=== PATIENT | female | born 2000 | race Caucasian/White ===

== ENCOUNTER 2023-07-21 11:13 | Emergency (ER) | payer BC ==
[~2023-07-21] VITALS: Ht 157.5 cm; Wt 64.9 kg
[2023-07-21 11:18] VITALS: BP 132/105; PULSE 87; RESP 18; O2SAT 100
[2023-07-21 11:46] LABS: APPEARANCE,URINE CLEAR (CLEAR); BILIRUBIN,URINE NEGATIVE (NEGATIVE); BLOOD, URINE 1+ (NEGATIVE); COLOR,URINE YELLOW (YELLOW); LEUKOCYTE ESTERASE ,URINE NEGATIVE (NEGATIVE); NITRITE, URINE NEGATIVE (NEGATIVE); PROTEIN,URINE NEGATIVE (NEGATIVE); UGLUCOSE NEGATIVE (NEGATIVE); UROBILINOGEN,URINE 0.2 EU/dL (0.2 - 1)
[2023-07-21 11:55] LABS: BACTERIA,URINE FEW /HPF (None Seen); RBC,URINE 0-5 /HPF (0-5); SQUAMOUS EPITHELIAL CELL,UR 0-3 (FEW) /LPF (0-3 (FEW)); WBC,URINE 0-5 /HPF (0-5)
[2023-07-21] MEDS: KETOROLAC 30 MG/ML VIAL IVP ONE (12:07)
[2023-07-21 12:33] LABS: BASOPHILS # (AUTO) 0.1 K/uL (0.00-0.22); BASOPHILS % (AUTO) 0.8 % (0.0-2.0); EOSINOPHILS # (AUTO) 0.1 K/uL (0-0.4); EOSINOPHILS % (AUTO) 1.1 % (0.0-4.0); HEMATOCRIT 40.6 % (36-48); LYMPHOCYTES # (AUTO) 3.1 K/uL (2.5-16.5); MEAN CORPUSCULAR HEMOGLOBIN 32 pg (27-31); MEAN CORPUSCULAR HGB CONC 35 g/dL (33-37); MEAN CORPUSCULAR VOLUME 92.1 fL (80-94); MONOCYTES # (AUTO) 0.6 K/uL (0.8-1.0); MONOCYTES % (AUTO) 6.3 % (1.7-9.3); NEUTROPHILS # (AUTO) 5.8 K/uL (1.8-7.7); NEUTROPHILS % (AUTO) 59.8 % (42.2-75.2); PLATELET COUNT (AUTO) 323 K/uL (140-450); WHITE BLOOD COUNT (AUTO) 9.7 K/uL (4.8-10.8)
[2023-07-21 12:48] LABS: ANION GAP 13.8 (8-16); CALCIUM 9.1 mg/dL (8.5-10.1); CREATININE 0.7 mg/dL (0.6-1.3); POTASSIUM 3.8 mmol/L (3.5-5.1)
[2023-07-21 13:00] LABS: LACTIC ACID 2.4 mmol/L (0.4-2.0)
[2023-07-21 13:04] LABS: ALANINE AMINOTRANSFERASE 22 U/L (12-78); ALBUMIN 4.2 g/dL (3.4-5.0); ALKALINE PHOSPHATASE 64 U/L (50-136); ASPARTATE AMINOTRANSFERASE 18 U/L (15-37); BILIRUBIN,DIRECT 0.1 mg/dL (0.0-0.3); TOTAL BILIRUBIN 0.7 mg/dL (0.0-1.0); TOTAL PROTEIN, SERUM 7.6 g/dL (6.4-8.2)
[2023-07-21] MEDS: ONDANSETRON 4 MG/2 ML VIAL IVP ONE (13:26)
[2023-07-21] MEDS: MORPHINE SULFATE 2 MG/ML SYR IVP ONE (13:26)
[2023-07-21] MEDS ORDERED: ACET-8905 PO (14:23)
[2023-07-21] MEDS ORDERED: ONDA-188 PO (14:23)
[2023-07-21] MEDS ORDERED: NAPR-1704 PO (14:23)
[2023-07-21 14:33] VITALS: BP 133/81; PULSE 72; RESP 11; O2SAT 100
== END 2023-07-21 14:33 | disposition home or self-care (01) ==
LOC: MED 11:13
DX: E28.2 Polycystic ovarian syndrome (principal); R07.89 Other chest pain; Z98.890 Other specified postprocedural states; Z79.899 Other long term (current) drug therapy
CPT/HCPCS: 36415; 71045; 76830; 80048; 80076; 81001; 81025; 83605; 84484; 85025; 87040; 93005; 93976; 96374; 96375; 99285; J1885; J2270; J2405; Q0092